=== PATIENT | female | born 1990 | race Caucasian/White ===

== ENCOUNTER 2017-08-22 11:43 | Inpatient (IN) ==
--- NOTE | 2017-08-22 11:01 | Anesthesia Evaluation PreOp ---
Date of Encounter: 08/22/17 Time of Encounter: 10:59 - Past History Planned Operation: csection Cardiac History: Denies any Significant Hx Pulmonary History: Smoker (1/2 pack per day) UPPER LEATHER CUTTER History: Denies Any Significant HX Other Medical History: Other (anxiety, depression) Anesthesia History: No Prior Anesthetic Complications, Past Anesthesia (eyes, ears) : Yes (, 28 weeks, no tracable heart tones) Alcohol Use: none Drug use: none Medications and Allergies Famotidine [Pepcid] 20 mg PO BID #60 tablet 12/22/15 [Rx] Vit/FA 1 each PO DAILY 12/22/15 [History] Methocarbamol [Robaxin] 500 mg PO Q8HR #30 tablet 10/18/16 [Rx] Tramadol HCl [Ultram] 50 mg PO TID PRN #6 tab 10/18/16 [Rx] predniSONE [Prednisone] 40 mg PO DAILY #10 tablet 10/18/16 [Rx] Diclofenac Sodium [Voltaren] 50 mg PO Q8HR #30 tablet. 11/17/16 [Rx] Tramadol HCl [Ultram] 50 mg PO Q6HR PRN #20 tab 11/17/16 [Rx] 3 Allergy/AdvReac Type Severity Reaction Status Date / Time aspirin Allergy Rash Verified 11/17/16 21:15 Penicillins Allergy Rash Verified 11/17/16 21:15 - Meds/Allergy Pre-op Review Medications Reviewed: Yes Allergies Reviewed: Yes Beta Blockers on Current Med List: No Anesthesia Exam Height: 65 Weight: 78 NPO (# of Hours): TEA THIS AM, NO CREAMER - HEENT Pupil (Motor): Pupils equal Mallampati: III Teeth: Normal Oral Opening: Greater than 3 - UPPER LEATHER CUTTER LOC: Oriented UPPER LEATHER CUTTER Motor: Normal RUE, Normal LUE, Normal RLE, Normal LLE, Normal Face UPPER LEATHER CUTTER Sensory: Normal: RUE, LUE, RLE, LLE, Face - Cardiac Rhythm: Regular Murmur: None JVD: No Carotid Bruit: No - Pulmonary Breath Sounds: bilateral Clear Respiratory Effort: Symmetrical Anesthesia Assess/Plan ASA Score: 2 Modified [place] Scale for Level of Consciousness: Cooperative, oriented, and tranquil Anesthetic Plan: General Monitoring Plan: Standard Monitors Recovery Plan: PACU
[2017-08-22 11:18] LABS: Basophils % 0.2 %; Eosinophils % 0.1 %; Monocytes % 5.5 %
[2017-08-22 11:20] LABS: Basophils # 0.1 K/mcL (0.0-0.2); Hematocrit 22.8 % (35.3-44.9); Hemoglobin 6.8 g/dL (11.5-15.4); Immature Granulocytes % 3.1 % (0-4); Immature Platelets 2.5 % (1.1-6.1); Lymphocytes # 1.9 K/mcL (0.6-4.6); Lymphocytes % 5.8 %; Mean Corpuscular HGB Conc 29.8 g/dL (31.6-35.5); Mean Corpuscular Hemoglobin 23.3 pg (28.0-33.3); Mean Corpuscular Volume 78.1 fL (83.0-100.0); Mean Platelet Volume 8.5 fL (9.4-12.4); Monocytes # 1.8 K/mcL (0.0-1.3); Neutrophils # 27.7 K/mcL (1.6-8.9); Nucleated Red Blood Cells 0.8 /100 WBC (0); Platelet Count 140 K/mcL (140-400); Red Blood Count 2.92 M/mcL (3.82-4.97); Red Cell Distribution Width 16.2 % (11.5-14.5); Segmented Neutrophils % 85.3 %
[2017-08-22 11:25] LABS: INR 1.2; Prothrombin Time 12.8 Seconds (9.4-12.1)
[2017-08-22 11:28] LABS: Activated Partial Thrombo Time 28.5 Seconds (26.0-36.0)
[2017-08-22 11:43] LABS: Anisocytosis 1+ (Not Present); Hypochromasia Present (Not Present); Microcytosis Present (Not Present); Polychromasia 1+ (Not Present)
[~2017-08-22 11:43] MED LIST: *HR* Etomidate 40 MG/20 ML VIAL IVP ONE; *HR* Oxytocin 10 UNIT/ML VIAL IM ONE; *HR* Phenylephrine 10 MG/ML VIAL ONE; *HR* Propofol 200 MG/20 ML VIAL IVP ONE; *HR* Succinylcholine 200 MG/10 ML VIAL IVP ONE; CeFAZolin Syr 3,000MG/30 ML 3,000 MG/30 ML SYRINGE IVPB ONE; Famotidine 20 MG/2 ML VIAL IVP PRN; Naloxone 0.4 MG/ML INJ IVP PRN; Ondansetron 4 MG/2 ML VIAL IVP PRN; Ringers Solution, Lactated 1,000 ML IVC SCH; Ringers Solution, Lactated 2,000 ML ONE
[2017-08-22 11:44] LABS: Platelet Estimate Normal (Normal)
[2017-08-22] MEDS ORDERED: Heparin 1,000 UNITS/500 mL 500 ML ONE (11:45)
[2017-08-22] MEDS ORDERED: *HR* FentaNYL (PF) 100 MCG/2 ML VIAL ONE (12:00)
[2017-08-22] MEDS ORDERED: *HR* HYDROmorphone (PF) 1 MG/ML SYRINGE ONE ×2 (12:19→12:36)
[2017-08-22] MEDS ORDERED: Dexamethasone 4 MG/ML VIAL ONE (12:22)
[2017-08-22] MEDS ORDERED: Ondansetron 4 MG/2 ML VIAL ONE (12:22)
[2017-08-22] MEDS ORDERED: *HR* Oxytocin 10 UNIT/ML VIAL IM ONE (12:25)
[2017-08-22] MEDS ORDERED: Ringers Solution, Lactated 1,000 ML ONE (12:25)
--- NOTE | 2017-08-22 12:58 | OB/GYN History & Physical ---
Date of Encounter: 08/22/17 Time of Encounter: 12:55 Assessment and Plan (1) and not yet delivered in third trimester Current visit: Yes Status: Acute (2) 29 weeks gestation of Current visit: Yes Status: Acute (3) Placental abruption in second trimester Current visit: Yes Status: Acute Patient will be prepped for an emergency section (4) demise > 22 weeks, delivered, current hospitalization Current visit: Yes Status: Acute History of Present Illness HPI: Ms. Rodriguez is a 27 year old female Patient is a 27-year-old 5 para 3013 at 29-2/7 weeks. Presented to labor and delivery with complaint of vaginal bleeding and severe abdominal pain. Patient is a care at another facility and approximately 4 AM this point started having severe abdominal pain she then since she started bleeding but did not call anyone. She arrived at our facility with severe pain kristen every 1 minute patient had called characteristics of the abruption with active vaginal bleeding. We did not heart tones immediately place the scanner on the patient and could not document any heart tones. We did have a medical technologist generalist come over from the office to also scan and they could not identify any heart tones either with color flow. Patient did not want to try and deliver vaginally wanted a section and was having such severe pain did not want to go through anything else. While we were getting patient set up for dissection lab work did come back she was noted to have hemoglobin of 6.8 platelets were down to 140,000 and she was getting uncomfortable. An emergency was in called due to potential going into DIC. Past Med Surg Social Fam HX - Past Medical History Source: patient Medical history: no medical history, other Psychiatric history: anxiety, bipolar, depression, other - Past Surgical History Surgical History: other - Social History Smoking Status: Current every day smoker Packs per day: 0.5 Smokeless Tobacco Status: No Alcohol use: none Drug use: none Occupational status: unemployed Current living situation: Home - Independent Activity Level: Independent ambulation Recent Out of Country Travel Within the Last 8 Weeks: No Exposure or Possible Exposure to Illness During Travel: No - Family History Brother Living Status: Still Living Hx Family Neurologic Disorders: Yes Obstetrical History - Pregnancies : 5 Para: 3 Term: 3 : 0 Ab's: 1 Livin Medications and Allergies 3 Allergy/AdvReac Type Severity Reaction Status Date / Time aspirin Allergy Rash Verified 11/17/16 21:15 Penicillins Allergy Rash Verified 11/17/16 21:15 Review of System OB - Menstruation Menstruation: other (Active vaginal bleeding severe cramping every minute) Exam - Constitutional Constitutional: well developed, average body habitus, severe distress - HEENT HEENT: EOMI, PERRL - Neck Neck exam: full ROM - Lungs Respiratory exam: CTAB - Cardiovascular Cardiovascular exam: RRR - Abdomen Abdomen: Present: gravid (Abdomen hard very tender to palpation) - Cervix Dilation: 2 Effacement: 80 Station: -2 - Uterus Uterus exam: Present: tender Results Result Diagrams: 08/22/17 11:00 Abnormal lab results WBC 32.5 K/mcL (4.3-11.1) H* 08/22/17 11:00 RBC 2.92 M/mcL (3.82-4.97) L 08/22/17 11:00 Hgb 6.8 g/dL (11.5-15.4) L 08/22/17 11:00 Hct 22.8 % (35.3-44.9) L 08/22/17 11:00 MCV 78.1 fL (83.0-100.0) L 08/22/17 11:00 MCH 23.3 pg (28.0-33.3) L 08/22/17 11:00 MCHC 29.8 g/dL (31.6-35.5) L 08/22/17 11:00 RDW 16.2 % (11.5-14.5) H 08/22/17 11:00 MPV 8.5 fL (9.4-12.4) L 08/22/17 11:00 Neutrophils # 27.7 K/mcL (1.6-8.9) H 08/22/17 11:00 Monocytes # 1.8 K/mcL (0.0-1.3) H 08/22/17 11:00 Nucleated RBCs/100 WBC 0.8 /100 WBC (0) H 08/22/17 11:00 Polychromasia 1+ (Not Present) A 08/22/17 11:00 Hypochromasia Present (Not Present) A 08/22/17 11:00 Anisocytosis 1+ (Not Present) A 08/22/17 11:00 Microcytosis Present (Not Present) A 08/22/17 11:00 PT 12.8 Seconds (9.4-12.1) H 08/22/17 11:00 Fibrinogen 95 mg/dL (169-393) L* 08/22/17 11:00 All other labs normal. - VTE Reasons for not Prescribing Prophylaxis: Treatment not Indicated - Low risk for VTE
[2017-08-22 13:08] LABS: Amphetamine Screen,Urine Negative ng/mL (Cutoff=1000); Barbiturate Screen,Urine Negative ng/mL (Cutoff=200); Benzodiazepines Screen,Urine Negative ng/mL (Cutoff=200); Cannabinoid Screen,Urine Negative ng/mL (Cutoff = 50); Cocaine Screen,Urine Negative ng/mL (Cutoff= 300); Opiate Screen,Urine Negative ng/mL (Cutoff=300); Phencyclidine Screen,Urine Negative ng/mL (Cutoff=25)
--- NOTE | 2017-08-22 13:11 | OB/GYN Procedure Note ---
Section - Date of procedure: 08/22/17 Preop diagnosis: other (Intrauterine at 29-2/7 weeks, placental abruption, active vaginal bleeding, demise) Post-op diagnosis: same (With complete abruption and DIC) Procedure: primary low transverse Surgeon: John Ohara Estimated blood loss (cc): 2,500 Was there an hearing and speech assistant present: Yes Senior Tech Manufacturing Engineering: La Nena Roger ([email or web address]) Anesthesiologist: Nate Ackerman Platform Inspector: Joseph Moran Anesthesia Type: General section complications: transfusion Disposition: ICU Specimens: Placenta - Infant (s) Infant A Delivery Date: 08/22/17 Delivery Time: 12:07 Presentation: vertex Route of delivery: other (section) Gender: Female Viability: Nonviable at 1 minute: 0 at 5 minutes: 0 Shoulder Dystocia: not encountered Placenta: spontaneous - Narrative Narrative: Patient is a 27-year-old 5 para 3 at 29-2/7 weeks who presented complaining of severe abdominal pain and vaginal bleeding patient was noted to be abrupting when we got heart tones it was noted there was no heart tones both by Doppler and by ultrasound. Patient was not wanted to deliver vaginally. Her blood work bacteria. She was going into the before meals hemoglobin was done 6.8 and platelets with 140,000 she was immediately taken for an emergency section. Procedure: Patient was taken operating room where general anesthesia was found be adequate. She was placed in the dorsal lithotomy position prepped and draped in usual fashion. Timeout was then obtained. A Pfannenstiel incision was then made with a scalpel and carried down through the underlying tissue to the fascia was identified. Fascia was nicked in midline extended laterally with the Watson scissors. The superior and inferior edges of the fascia grasped tented up and dissected off the rectus muscles. Rectus muscles were in midline parietal peritoneum was identified tented up and entered sharply. This was extended superiorly and inferiorly Metzenbaum scissors. Bladder flap was created digitally the lower uterine segment was incised with a scalpel extended laterally with digital manipulation. Bladder blade was inserted the vesicouterine peritoneum was identified tented up and entered sharply. This was extended laterally and bladder flap created digitally. The lower uterine segment incised with a scalpel extended laterally with digital manipulation. Membranes were ruptured and fluid was blood tinged was delivered as no cardiac activity cord is clamped and cut infant was handed off to waiting pediatric team. It was noted immediately that the placenta was not attached back it was removed followed by approximately 500 mL of clot. Uterus is removed from the abdomen and cleaned of all clots and debris. The lower uterine segment was then closed in 0 Vicryl in a running locking stitch by a 2 layer closure. Good hemostasis was noted at this time however she started to have oozing coming from the suture line. Did require couple [id number] get that under control. Uterus was returned back to the abdomen the gutters were cleaned of all clots and debris large clots were then identified at this time and removed. Patient continued to have oozing now around the bladder reflection Liza was then applied to the surface and the vesicouterine peritoneum was closed using a 2-0 Vicryl in a running stitch. No attempt was made to close the parietal peritoneum the fascia was then closed using a #1 stratafix in a running stitch it was noted this time she had moderate amount of bleeding, from the subcutaneous thing is tissue attempts were made to get this under control with monopolar cautery but it was decided this time we just placed the MEME drain in the subcutaneous layer and then closed the skin with verona. The skin was closed verona and a pressure dressing was applied. All needles lap sponge counts were correct 3 she did receive preoperative antibiotics. We will continue antibiotics for the next 24 hours patient did receive first couple units of blood intraoperatively. Patient was transferred to ICU.
[2017-08-22 13:12] LABS: Basophils % 0.2 %; Red Blood Count 2.53 M/mcL (3.82-4.97); Red Cell Distribution Width 17.7 % (11.5-14.5)
[2017-08-22 13:13] LABS: Basophils # 0.1 K/mcL (0.0-0.2); Eosinophils % 0.1 %; Hematocrit 20.7 % (35.3-44.9); Hemoglobin 6.4 g/dL (11.5-15.4); Immature Granulocytes % 3.4 % (0-4); Lymphocytes # 1.4 K/mcL (0.6-4.6); Lymphocytes % 5.3 %; Mean Corpuscular HGB Conc 30.9 g/dL (31.6-35.5); Mean Corpuscular Hemoglobin 25.3 pg (28.0-33.3); Mean Corpuscular Volume 81.8 fL (83.0-100.0); Mean Platelet Volume 9.1 fL (9.4-12.4); Monocytes # 1.6 K/mcL (0.0-1.3); Monocytes % 5.8 %; Neutrophils # 23.1 K/mcL (1.6-8.9); Nucleated Red Blood Cells 0.8 /100 WBC (0); Segmented Neutrophils % 85.2 %
[2017-08-22 13:22] LABS: Alanine Aminotransferase 5 Units/L (7-52); Aspartate Amino Transferase 19 Units/L (13-39); BUN/Creatinine Ratio 17 (6-26); Blood Urea Nitrogen 6 mg/dL (6-20); Lactate Dehydrogenase 321 Units/L (140-271); Uric Acid 3.8 mg/dL (2.3-7.6); eGFR For African Americans > 60 (> 60); eGFR For Non-African Americans > 60 (> 60)
[2017-08-22 13:24] LABS: Platelet Count 59 K/mcL (140-400)
[2017-08-22] MEDS ORDERED: *HR* HYDROmorphone (PF) 1 MG/ML SYRINGE IVP PRN ×2 (13:27→13:40)
[2017-08-22] MEDS ORDERED: Ondansetron 4 MG/2 ML VIAL IVP PRN (13:33)
[2017-08-22] MEDS ORDERED: Oxytocin 20 units/ LR 1000 mL 20 UNIT/1,000 ML BAG IVC SCH (13:33)
[2017-08-22] MEDS ORDERED: Sennosides 8.6 MG TABLET PO PRN (13:33)
[2017-08-22] MEDS ORDERED: Simethicone 80 MG TAB.CHEW PO PRN (13:33)
[2017-08-22] MEDS ORDERED: Metoclopramide 10 MG/2 ML VIAL IVP PRN (13:33)
[2017-08-22] MEDS ORDERED: *HR* HYDROmorphone 20 MG/20 ML PCA IVC PRN (13:33)
[2017-08-22] MEDS ORDERED: Ringers Solution, Lactated 1,000 ML IVC SCH (13:33)
[2017-08-22] MEDS ORDERED: *HR* LORazepam 2 MG/ML VIAL IVP PRN (13:33)
--- NOTE | 2017-08-22 13:44 | Pulmonology Consult Note ---
<Jerry Mello - Last Filed: 08/22/17 14:44> Date of Encounter: 08/22/17 Time of Encounter: 13:41 Assessment and Plan (1) Acute blood loss anemia Current Visit: Yes Status: Acute Patient admitted for severe abdominal pain at 29-2/7 weeks Active vaginal bleeding without heart tones Hgb dropped from 10.8 -> 6.4 S/p emergency today and received 2 units PRBCs intra-operatively Plan: Continue blood transfusions; likely require 4-6 units Iron supplementation Closely monitor vital signs throughout the day Hemodynamically stable at this time There is a concern for possible DIC, though INR stable and Plt 140,000. Will follow. (2) Status post emergency section Current Visit: Yes Status: Acute S/p emergency Cesarian section on 08/22/17 CHANNEL OPENER managing Pain control NC 02 2L Received 2 units PRBCs intra-operatively ABD Binder at all times Vital signs are stable Patient is still high risk and will continue to monitor closely (3) Placental abruption in second trimester Current Visit: Yes Status: Acute Underwent emergency with drop in Hgb to 6.8 and Plt 140,000 along with demise (4) Leukocytosis Current Visit: Yes Status: Acute WBC trending down 32.5 to 27.1 Likely reactive at this time Continue Ancef Will continue to follow Qualifiers: Leukocytosis type: unspecified Qualified Code(s): D72.829 - Elevated white blood cell count, unspecified (5) Abdominal pain Current Visit: Yes Status: Acute Incisional pain from and generalized discomfort as well Dilaudid CUPOLA TENDER HELPER pump ordered Pain is improving Qualifiers: Abdominal location: generalized Qualified Code(s): R10.84 - Generalized abdominal pain (6) demise > 22 weeks, delivered, current hospitalization Current Visit: Yes Status: Acute Underwent emergency . Does want baby brought to bedside at this time (7) Pediculosis capitis Current Visit: Yes Status: Acute Anesthesiology noted to see head lice during the Precautions Ordered Nix treatment x1 (8) DVT prophylaxis Current Visit: Yes Status: Acute EPCDs only at this time with significant blood loss anemia History of Present Illness Consult date: 08/22/17 Chief complaint: abdominal pain, abruption History of present illness: Ms. Rodriguez is a 27 year old female with a past medical history of anxiety and depression who presented to [facility] ED with a chief compalint of severe abdominal pain and vaginal bleeding. She is 5 para 3013 at 29-2/7 weeks. Patient is a care at another facility and approximately 4 AM this point started having severe abdominal pain she then since she started bleeding but did not call anyone. She arrived at our facility with severe pain kristen every 1 minute patient had called characteristics of the abruption with active vaginal bleeding. US did not show heartones. Patient did not want to try and deliver vaginally wanted a section and was having such severe pain did not want to go through anything else. While OB was getting patient set up for Cesarian section, lab work did come back she was noted to have hemoglobin of 6.8 and platelets were down to 140,000. She was notably uncomfortable and an emergency was in called due to potential going into DIC. She underwent a successful emergent without complication. Patient received 2 units of PRBCs intra-operatively. With her need for multiple blood transfusions, possible DIC or hemodynamic instabily, she was transferred to ICU and Pulm/Critcal care was consulted. On evaluation, she is pale and uncomfortable. Patient does not want to see the baby while she is in the ICU. She continues to complain of abdominal pain and denies any CP, SOB, palpitations or lightheadedness. No petechiae are present. Vitals signs are stable. We will continue to monitor her closely throughout the day and provide any further interventions if necessary. Past Med Surg Social Fam HX - Past Medical History Medical history: no medical history, other Psychiatric history: anxiety, bipolar, depression, other - Past Surgical History Surgical History: other - Social History Smoking Status: Current every day smoker Packs per day: 0.5 Smokeless Tobacco Status: No Alcohol use: none Drug use: none - Family History Brother Living Status: Still Living Hx Family Neurologic Disorders: Yes Medications and Allergies 3 Allergy/AdvReac Type Severity Reaction Status Date / Time aspirin Allergy Rash Verified 11/17/16 21:15 Penicillins Allergy Rash Verified 11/17/16 21:15 All Systems: A 10-system review of systems was performed and is negative for pertinent findings except as documented above in the HPI. - Constitutional Constitutional: as per HPI - EENT Nose, mouth and throat: no headache(s) - Cardiovascular Cardiovascular: no chest pain, no palpitations - Respiratory Respiratory: as per HPI - Gastrointestinal Gastrointestinal: abdominal pain - Integumentary Integumentary: no rash - Neurological Neurological: no headache(s), no loss of vision - Endocrine Endocrine: no flushing Physical Examination General appearance: appears uncomfortable (soft spoken, agitated) Eyes: nonicteric ENT: oropharynx dry Neck: supple Effort: normal Auscultation: bilateral: clear Cardiovascular: regular rate and rhythm Gastrointestinal: normoactive bowel sounds, tender (incisional pain and diffuse) , non-distended Integumentary: other (pale) Extremities: no cyanosis, no edema, no clubbing, no ischemia or petechiae Musculoskeletal: no deformities non-focal exam tearful Results - Laboratory Findings CBC and BMP: 08/22/17 12:40 08/22/17 12:40 PT/INR, D-dimer PT 12.8 Seconds (9.4-12.1) H 08/22/17 11:00 Abnormal lab findings: Abnormal lab results WBC 27.1 K/mcL (4.3-11.1) H 08/22/17 12:40 RBC 2.53 M/mcL (3.82-4.97) L 08/22/17 12:40 Hgb 6.4 g/dL (11.5-15.4) L 08/22/17 12:40 Hct 20.7 % (35.3-44.9) L 08/22/17 12:40 MCV 81.8 fL (83.0-100.0) L 08/22/17 12:40 MCH 25.3 pg (28.0-33.3) L 08/22/17 12:40 MCHC 30.9 g/dL (31.6-35.5) L 08/22/17 12:40 RDW 17.7 % (11.5-14.5) H 08/22/17 12:40 Plt Count 59 K/mcL (140-400) L D 08/22/17 12:40 MPV 9.1 fL (9.4-12.4) L 08/22/17 12:40 Neutrophils # 27.7 K/mcL (1.6-8.9) H 08/22/17 11:00 Monocytes # 1.8 K/mcL (0.0-1.3) H 08/22/17 11:00 Nucleated RBCs/100 WBC 0.8 /100 WBC (0) H 08/22/17 12:40 Polychromasia 1+ (Not Present) A 08/22/17 11:00 Hypochromasia Present (Not Present) A 08/22/17 11:00 Anisocytosis 1+ (Not Present) A 08/22/17 11:00 Microcytosis Present (Not Present) A 08/22/17 11:00 PT 12.8 Seconds (9.4-12.1) H 08/22/17 11:00 Fibrinogen 95 mg/dL (169-393) L* 08/22/17 11:00 Creatinine 0.36 mg/dL (0.60-1.20) L 08/22/17 12:40 ALT 5 Units/L (7-52) L 08/22/17 12:40 Lactate Dehydrogenase 321 Units/L (140-271) H 08/22/17 12:40 - Clinical Findings Intake & Output: Intake & Output 08/21/17 08/22/17 08/22/17 23:59 07:59 15:59 Weight 102.3 kg Consult Discharge Plan - Plan Referrals: NONE,PCP [Primary Care Provider] - <Senait Cool - Last Filed: 08/22/17 15:51> Date of Encounter: 08/22/17 All Systems: A 10-system review of systems was performed and is negative for pertinent findings except as documented above in the HPI. Physical Examination Vital Signs: Vital Signs, Last 4 Hours Temp Pulse Pulse Resp BP Pulse Ox 08/22/17 15:30 94 10 152/71 95 08/22/17 15:00 92 12 138/82 98 08/22/17 14:59 92 92 12 08/22/17 14:52 98.9 F 108 10 157/89 96 08/22/17 14:45 102 12 141/77 98 08/22/17 14:37 98.9 F 92 12 162/87 08/22/17 14:30 98.9 F 97 12 131/81 99 08/22/17 14:15 112 12 161/88 98 08/22/17 14:00 94 16 127/80 99 08/22/17 13:45 119 16 169/89 99 Results - Laboratory Findings CBC and BMP: 08/22/17 12:40 08/22/17 12:40 PT/INR, D-dimer PT 12.8 Seconds (9.4-12.1) H 08/22/17 11:00 Abnormal lab findings: Abnormal lab results WBC 27.1 K/mcL (4.3-11.1) H 08/22/17 12:40 RBC 2.53 M/mcL (3.82-4.97) L 08/22/17 12:40 Hgb 6.4 g/dL (11.5-15.4) L 08/22/17 12:40 Hct 20.7 % (35.3-44.9) L 08/22/17 12:40 MCV 81.8 fL (83.0-100.0) L 08/22/17 12:40 MCH 25.3 pg (28.0-33.3) L 08/22/17 12:40 MCHC 30.9 g/dL (31.6-35.5) L 08/22/17 12:40 RDW 17.7 % (11.5-14.5) H 08/22/17 12:40 Plt Count 59 K/mcL (140-400) L D 08/22/17 12:40 MPV 9.1 fL (9.4-12.4) L 08/22/17 12:40 Neutrophils # 23.1 K/mcL (1.6-8.9) H 08/22/17 12:40 Monocytes # 1.6 K/mcL (0.0-1.3) H 08/22/17 12:40 Nucleated RBCs/100 WBC 0.8 /100 WBC (0) H 08/22/17 12:40 Platelet Estimate Decreased (Normal) L 08/22/17 12:40 Polychromasia 1+ (Not Present) A 08/22/17 12:40 Hypochromasia Present (Not Present) A 08/22/17 11:00 Anisocytosis 1+ (Not Present) A 08/22/17 11:00 Microcytosis Present (Not Present) A 08/22/17 11:00 PT 12.8 Seconds (9.4-12.1) H 08/22/17 11:00 Fibrinogen 95 mg/dL (169-393) L* 08/22/17 11:00 Creatinine 0.36 mg/dL (0.60-1.20) L 08/22/17 12:40 ALT 5 Units/L (7-52) L 08/22/17 12:40 Lactate Dehydrogenase 321 Units/L (140-271) H 08/22/17 12:40 - Clinical Findings Intake & Output: Intake & Output 08/21/17 08/22/17 08/22/17 23:59 07:59 15:59 Intake Total 0 / 0 Balance 0 / 0 Weight 102.3 kg - Attending Attestation I examined this patient and my medical decision-making was reviewed with the Resident Physician. I agree with the documented findings, disposition and treatment plan as described except to the extent set forth below. Patient seen and examined. Labs, radiology, chart personally reviewed. Agree with resident's history and physical, assessment, plan with following comments: SECURITY PUBLIC SAFETY OFFICER: Patient follows commands, patient is lethargic after surgery. Pulmonary: Acceptable oxygenation and ventilation Cardiovascular: stable and correction of her anemia even partially would be acceptable as long as hemodynamically stable. GI: Nutrition per dietary and GI prophylaxis per routine Heme: DVT prophylaxis per routine. Patient had blood loss and transfusion packed RBC to correct her acute anemia. Clinically patient does not have any signs or symptoms of DIC. ID: As per protocol of CHANNEL OPENER Renal; urine out put and renal funtion reviewed Endorcine: blood glucose is monitored Lines: all lines checked and no evidence of infections Skin: skin care to prevent pressure ulcers per nursing routine care CHANNEL OPENER: Management of her postsurgical CHANNEL OPENER related will be managed by CHANNEL OPENER specialist.
[2017-08-22] MEDS ORDERED: 0.9 % Sodium Chloride 250 ML ONE (13:54)
[2017-08-22 14:07] LABS: Polychromasia 1+ (Not Present)
[2017-08-22] MEDS: CeFAZolin Premix DUPLEX 2,000 MG/50 ML BAG IVPB SCH ×2 (14:07→20:52)
[2017-08-22 14:08] LABS: Platelet Estimate Decreased (Normal)
[2017-08-22] MEDS ORDERED: Permethrin Cream Rinse 60 ML LIQUID TP ONE (14:22)
[2017-08-22 17:16] LABS: INR 1.3
--- NOTE | 2017-08-22 17:22 | OB/GYN Progress Note ---
Date of Encounter: 08/22/17 Time of Encounter: 17:20 - Assessment and Plan (1) and not yet delivered in third trimester Current Visit: Yes Status: Resolved (2) 29 weeks gestation of Current Visit: Yes Status: Resolved (3) Placental abruption in second trimester Current Visit: Yes Status: Acute Patient will be prepped for an emergency section (4) demise > 22 weeks, delivered, current hospitalization Current Visit: Yes Status: Acute (5) DIC (disseminated intravascular coagulation) Current Visit: Yes Status: Acute We will order repeat coags stat patient is currently on her fourth unit of blood at this time Subjective - Subjective Interval history: Patient's difficult to communicate with is still under the anesthetic. Patient' s not having excessive vaginal bleeding at this time and is approximately 25 mL and a MEME drain. Lab work obtained at 1:00 for some reason was canceled they did just run at and platelets are down to 59,000 and fibrinogen is 78,000. We will order a stat repeat coags now. Objective - Vital Signs Latest vital signs: Vital Signs Temp Pulse Pulse Resp BP Pulse Ox 08/22/17 16:51 99.0 F 103 14 119/73 96 08/22/17 16:36 99.2 F 105 12 120/74 95 08/22/17 16:32 99.2 F 106 12 120/74 95 08/22/17 15:30 94 10 152/71 95 08/22/17 15:00 92 12 138/82 98 08/22/17 14:59 92 92 12 08/22/17 14:52 98.9 F 108 10 157/89 96 08/22/17 14:45 102 12 141/77 98 08/22/17 14:37 98.9 F 92 12 162/87 08/22/17 14:30 98.9 F 97 12 131/81 99 08/22/17 14:15 112 12 161/88 98 08/22/17 14:00 94 16 127/80 99 08/22/17 13:45 119 16 169/89 99 Intake and Output 08/22/17 08/22/17 08/22/17 07:59 15:59 23:59 Intake Total 0 / 0 301 / 301 Balance 0 / 0 301 / 301 Intake: Blood Product 0 / 0 301 / 301 Rbcs Leuko Poor As-1 Unit 0 / 0 301 / 301 [id number] Rbcs Leuko Poor As-3 Ph Unit 0 / 0 [id number] Other: Weight 102.3 kg Patient Weight 08/22/17 23:59 Weight 102.3 kg - Exam Abdomen: Present: soft Incision: Present: normal, dry (The MEME 25 mL), intact Uterus: Present: firm Comments: Fundal height 2 below the umbilicus - Labs Labs: Laboratory Results - last 24 hr 08/22/17 08/22/17 08/22/17 11:00 11:00 11:00 WBC 32.5 H* RBC 2.92 L Hgb 6.8 L Hct 22.8 L MCV 78.1 L MCH 23.3 L MCHC 29.8 L RDW 16.2 H Plt Count 140 MPV 8.5 L Immature Gran % 3.1 Seg Neutrophils % 85.3 Lymphocytes % 5.8 Monocytes % 5.5 Eosinophils % 0.1 Basophils % 0.2 Neutrophils # 27.7 H Lymphocytes # 1.9 Monocytes # 1.8 H Eosinophils # 0.0 Basophils # 0.1 Nucleated RBCs/100 WBC 0.8 H Platelet Estimate Normal Immature Plt Fraction 2.5 Polychromasia 1+ A Hypochromasia Present A Anisocytosis 1+ A Microcytosis Present A PT 12.8 H INR 1.2 APTT 28.5 Fibrinogen 95 L* BUN Creatinine Est GFR ( Amer) Est GFR (Non-Af Amer) BUN/Creatinine Ratio Uric Acid AST ALT Lactate Dehydrogenase Urine Opiates Screen Ur Barbiturates Screen Ur Phencyclidine Scrn Ur Amphetamines Screen U Benzodiazepines Scrn Urine Cocaine Screen U Marijuana (THC) Screen Blood Type Antibody Screen Crossmatch 08/22/17 08/22/17 08/22/17 11:00 12:30 12:40 WBC 27.1 H RBC 2.53 L Hgb 6.4 L Hct 20.7 L MCV 81.8 L MCH 25.3 L MCHC 30.9 L RDW 17.7 H Plt Count 59 L D MPV 9.1 L Immature Gran % 3.4 Seg Neutrophils % 85.2 Lymphocytes % 5.3 Monocytes % 5.8 Eosinophils % 0.1 Basophils % 0.2 Neutrophils # 23.1 H Lymphocytes # 1.4 Monocytes # 1.6 H Eosinophils # 0.0 Basophils # 0.1 Nucleated RBCs/100 WBC 0.8 H Platelet Estimate Decreased L Immature Plt Fraction Polychromasia 1+ A Hypochromasia Anisocytosis Microcytosis PT INR APTT Fibrinogen BUN Creatinine Est GFR ( Amer) Est GFR (Non-Af Amer) BUN/Creatinine Ratio Uric Acid AST ALT Lactate Dehydrogenase Urine Opiates Screen Negative Ur Barbiturates Screen Negative Ur Phencyclidine Scrn Negative Ur Amphetamines Screen Negative U Benzodiazepines Scrn Negative Urine Cocaine Screen Negative U Marijuana (THC) Screen Negative Blood Type O POSITIVE Antibody Screen NEGATIVE Crossmatch See Detail 08/22/17 08/22/17 08/22/17 12:40 12:40 12:40 WBC RBC Hgb Hct MCV MCH MCHC RDW Plt Count MPV Immature Gran % Seg Neutrophils % Lymphocytes % Monocytes % Eosinophils % Basophils % Neutrophils # Lymphocytes # Monocytes # Eosinophils # Basophils # Nucleated RBCs/100 WBC Platelet Estimate Immature Plt Fraction Polychromasia Hypochromasia Anisocytosis Microcytosis PT 14.0 H INR 1.3 APTT Fibrinogen 78 L* BUN 6 Creatinine 0.36 L Est GFR ( Amer) > 60 Est GFR (Non-Af Amer) > 60 BUN/Creatinine Ratio 17 Uric Acid 3.8 AST 19 ALT 5 L Lactate Dehydrogenase 321 H Urine Opiates Screen Ur Barbiturates Screen Ur Phencyclidine Scrn Ur Amphetamines Screen U Benzodiazepines Scrn Urine Cocaine Screen U Marijuana (THC) Screen Blood Type Antibody Screen Crossmatch
[2017-08-22 20:56] LABS: Nucleated Red Blood Cells 0.4 /100 WBC (0)
[2017-08-22 20:57] LABS: Hematocrit 28.1 % (35.3-44.9); Hemoglobin 9.2 g/dL (11.5-15.4); Mean Corpuscular HGB Conc 32.7 g/dL (31.6-35.5); Mean Corpuscular Hemoglobin 26.3 pg (28.0-33.3); Mean Corpuscular Volume 80.3 fL (83.0-100.0); Mean Platelet Volume 10.1 fL (9.4-12.4); Red Cell Distribution Width 16.5 % (11.5-14.5)
[2017-08-22 21:03] LABS: INR 1.1; Prothrombin Time 11.7 Seconds (9.4-12.1)
[2017-08-22 21:17] LABS: Platelet Count 95 K/mcL (140-400)
[2017-08-22 22:39] LABS: Anisocytosis 1+ (Not Present); Band Neutrophils % 6.1 % (0-4); Lymphocytes # 1.9 K/mcL (0.6-4.6); Lymphocytes % 6.1 %; Monocytes # 0.6 K/mcL (0.0-1.3); Neutrophils # 28.8 K/mcL (1.6-8.9); Polychromasia 1+ (Not Present); Segmented Neutrophils % 85.7 %
[2017-08-22 22:40] LABS: Platelet Estimate Decreased (Normal)
[2017-08-23 04:54] LABS: Basophils % 0.2 %; Hematocrit 24.9 % (35.3-44.9); Monocytes % 5.8 %
[2017-08-23 04:56] LABS: Basophils # 0.1 K/mcL (0.0-0.2); Hemoglobin 8.2 g/dL (11.5-15.4); Immature Granulocytes % 1.4 % (0-4); Lymphocytes # 3.2 K/mcL (0.6-4.6); Mean Corpuscular HGB Conc 32.9 g/dL (31.6-35.5); Mean Corpuscular Hemoglobin 26.5 pg (28.0-33.3); Mean Corpuscular Volume 80.6 fL (83.0-100.0); Mean Platelet Volume 9.7 fL (9.4-12.4); Monocytes # 1.5 K/mcL (0.0-1.3); Neutrophils # 21.4 K/mcL (1.6-8.9); Nucleated Red Blood Cells 0.3 /100 WBC (0); Platelet Count 110 K/mcL (140-400); Red Blood Count 3.09 M/mcL (3.82-4.97); Red Cell Distribution Width 16.4 % (11.5-14.5); Segmented Neutrophils % 80.6 %
[2017-08-23 05:16] LABS: Anisocytosis 1+ (Not Present); Hypochromasia Present (Not Present); Microcytosis Present (Not Present); Platelet Estimate Decreased (Normal); Toxic Granulation Present (Not Present); Toxic Vacuolation Present (Not Present)
--- NOTE | 2017-08-23 08:12 | Pulmonology Progress Note ---
<Jerry Mello - Last Filed: 08/23/17 08:22> Date of Encounter: 08/23/17 Time of Encounter: 08:09 Assessment and Plan (1) Acute blood loss anemia Current Visit: Yes Status: Acute Patient admitted for severe abdominal pain at 29-2/7 weeks Complained of active vaginal bleeding without heart tones Hgb improved from 10.8 -> 6.4 -> 9.2 S/p emergency today and received a total of 6 units Plan: Iron supplementation Continue to closely monitor vital signs Hemodynamically stable at this time Very low concern for DIC Stable to transfer back to [facility] today per OB team (2) Status post emergency section Current Visit: Yes Status: Acute S/p emergency Cesarian section on 08/22/17 [facility] managing Pain control On room air now Received total 6 units PRBCs ABD Binder at all times Vital signs are stable (3) Placental abruption in second trimester Current Visit: Yes Status: Acute Underwent emergency with drop in Hgb to 6.8 and Plt 140,000 along with demise See above (4) Leukocytosis Current Visit: Yes Status: Acute WBC trending down 32.5 to 27.1 -> 26.6 Likely reactive at this time Continue Ancef Will continue to follow Qualifiers: Leukocytosis type: unspecified Qualified Code(s): D72.829 - Elevated white blood cell count, unspecified (5) Abdominal pain Current Visit: Yes Status: Acute Incisional pain from Pain management per OB team Has been well controlled on [employer] pump Qualifiers: Abdominal location: generalized Qualified Code(s): R10.84 - Generalized abdominal pain (6) demise > 22 weeks, delivered, current hospitalization Current Visit: Yes Status: Acute Underwent emergency . (7) Pediculosis capitis Current Visit: Yes Status: Acute Anesthesiology noted to see head lice during the Received Nix treatment x1 Can repeat in one week if no resolution (8) DVT prophylaxis Current Visit: Yes Status: Acute EPCDs for now Subjective Principal diagnosis: placental abruption Interval history: Patient is admitted for placental abruption s/p with acute blood loss anemia She is resting comfortably in bed this morning Complaining of abdominal pain about her incision Nursing reports she received a total of 6 units PRBCs Vital signs stable throughout the night Denies any GHOTRA, chest pain, SOB, palpitations. Objective PUL Vital signs: Last Vital Signs Temp 98.7 F 08/23/17 07:25 Pulse 100 08/23/17 06:00 Resp 16 08/23/17 06:00 BP 121/70 08/23/17 06:00 Pulse Ox 96 08/23/17 06:00 General appearance: no acute distress Eyes: nonicteric ENT: oropharynx dry Neck: supple Effort: normal Auscultation: bilateral: clear Cardiovascular: other (tacchycardia) Gastrointestinal: normoactive bowel sounds, non-distended Integumentary: normal Extremities: no cyanosis, no edema, no clubbing Musculoskeletal: no deformities normal mental status, non-focal exam depressed (not speaking very much) Results - Laboratory Findings CBC and BMP: 08/23/17 04:30 08/22/17 12:40 PT/INR, D-dimer PT 11.7 Seconds (9.4-12.1) 08/22/17 20:45 D-Dimer [id number] ng/mLFEU (0-500) H 08/22/17 20:45 Abnormal lab findings: Abnormal lab results WBC 26.6 K/mcL (4.3-11.1) H 08/23/17 04:30 RBC 3.09 M/mcL (3.82-4.97) L 08/23/17 04:30 Hgb 8.2 g/dL (11.5-15.4) L 08/23/17 04:30 Hct 24.9 % (35.3-44.9) L 08/23/17 04:30 MCV 80.6 fL (83.0-100.0) L 08/23/17 04:30 MCH 26.5 pg (28.0-33.3) L 08/23/17 04:30 RDW 16.4 % (11.5-14.5) H 08/23/17 04:30 Plt Count 110 K/mcL (140-400) L 08/23/17 04:30 Band Neutrophils % 6.1 % (0-4) H 08/22/17 20:45 Neutrophils # 21.4 K/mcL (1.6-8.9) H 08/23/17 04:30 Monocytes # 1.5 K/mcL (0.0-1.3) H 08/23/17 04:30 Nucleated RBCs/100 WBC 0.3 /100 WBC (0) H 08/23/17 04:30 Toxic Granulation Present (Not Present) A 08/23/17 04:30 Toxic Vacuolation Present (Not Present) A 08/23/17 04:30 Platelet Estimate Decreased (Normal) L 08/23/17 04:30 Polychromasia 1+ (Not Present) A 08/22/17 20:45 Hypochromasia Present (Not Present) A 08/23/17 04:30 Anisocytosis 1+ (Not Present) A 08/23/17 04:30 Microcytosis Present (Not Present) A 08/23/17 04:30 APTT 25.7 Seconds (26.0-36.0) L 08/22/17 20:45 D-Dimer [id number] ng/mLFEU (0-500) H 08/22/17 20:45 Creatinine 0.36 mg/dL (0.60-1.20) L 08/22/17 12:40 POC Glucose 122 (58-89) H 08/22/17 13:19 ALT 5 Units/L (7-52) L 08/22/17 12:40 Lactate Dehydrogenase 321 Units/L (140-271) H 08/22/17 12:40 - Clinical Findings Intake & Output: Intake & Output 08/22/17 08/23/17 08/23/17 23:59 07:59 15:59 Intake Total 601 / 601 Output Total 700 / 700 1845 / 1845 Balance -99 / -99 -1845 / -1845 Weight 102 kg - VTE Reasons for not Prescribing Prophylaxis: Treatment not Indicated - Low risk for VTE Documentation of Mechanical Device: Intermittent pneumatic compression device Consult Discharge Plan - Plan Referrals: NONE,PCP [Primary Care Provider] - <Senait Cool - Last Filed: 08/23/17 13:10> Date of Encounter: 08/23/17 Objective PUL Vital signs: Last Vital Signs Temp 98.7 F 08/23/17 07:25 Pulse 112 08/23/17 09:00 Resp 18 08/23/17 09:00 BP 109/68 08/23/17 09:00 Pulse Ox 94 08/23/17 09:00 Results - Laboratory Findings CBC and BMP: 08/23/17 04:30 08/22/17 12:40 PT/INR, D-dimer PT 11.7 Seconds (9.4-12.1) 08/22/17 20:45 D-Dimer [id number] ng/mLFEU (0-500) H 08/22/17 20:45 Abnormal lab findings: Abnormal lab results WBC 26.6 K/mcL (4.3-11.1) H 08/23/17 04:30 RBC 3.09 M/mcL (3.82-4.97) L 08/23/17 04:30 Hgb 8.2 g/dL (11.5-15.4) L 08/23/17 04:30 Hct 24.9 % (35.3-44.9) L 08/23/17 04:30 MCV 80.6 fL (83.0-100.0) L 08/23/17 04:30 MCH 26.5 pg (28.0-33.3) L 08/23/17 04:30 RDW 16.4 % (11.5-14.5) H 08/23/17 04:30 Plt Count 110 K/mcL (140-400) L 08/23/17 04:30 Band Neutrophils % 6.1 % (0-4) H 08/22/17 20:45 Neutrophils # 21.4 K/mcL (1.6-8.9) H 08/23/17 04:30 Monocytes # 1.5 K/mcL (0.0-1.3) H 08/23/17 04:30 Nucleated RBCs/100 WBC 0.3 /100 WBC (0) H 08/23/17 04:30 Toxic Granulation Present (Not Present) A 08/23/17 04:30 Toxic Vacuolation Present (Not Present) A 08/23/17 04:30 Platelet Estimate Decreased (Normal) L 08/23/17 04:30 Polychromasia 1+ (Not Present) A 08/22/17 20:45 Hypochromasia Present (Not Present) A 08/23/17 04:30 Anisocytosis 1+ (Not Present) A 08/23/17 04:30 Microcytosis Present (Not Present) A 08/23/17 04:30 APTT 25.7 Seconds (26.0-36.0) L 08/22/17 20:45 D-Dimer [id number] ng/mLFEU (0-500) H 08/22/17 20:45 Creatinine 0.36 mg/dL (0.60-1.20) L 08/22/17 12:40 POC Glucose 122 (58-89) H 08/22/17 13:19 ALT 5 Units/L (7-52) L 08/22/17 12:40 Lactate Dehydrogenase 321 Units/L (140-271) H 08/22/17 12:40 - Clinical Findings Intake & Output: Intake & Output 08/22/17 08/23/17 08/23/17 23:59 07:59 15:59 Intake Total 651 / 651 50 / 50 Output Total 700 / 700 1845 / 1845 480 / 480 Balance -49 / -49 -1845 / -1845 -430 / -430 Weight 102 kg - Attending Attestation I examined this patient and my medical decision-making was reviewed with the Resident Physician. I agree with the documented findings, disposition and treatment plan as described except to the extent set forth below. Patient seen and examined. Labs, radiology, chart personally reviewed. Agree with resident's history and physical, assessment, plan with following comments: CHECK GRADER: Patient follows commands, Pulmonary: Acceptable oxygenation and ventilation Cardiovascular: stable GI: Nutrition per dietary and GI prophylaxis per routine Heme: DVT prophylaxis per routine. Anemia stable Discussed with [facility] and patient is stable from medical standpoint. Patient was transferred to [facility]. Thank you for the consultation and please call for any questions.
[2017-08-23] MEDS ORDERED: Prenatal Vit/FA 1 EACH TABLET PO SCH (09:00)
[2017-08-23] MEDS: CeFAZolin Premix DUPLEX 2,000 MG/50 ML BAG IVPB SCH ×3 (09:25→22:08)
[2017-08-23] MEDS ORDERED: *HR* OxyCODONE/APAP 5/325 TABLET PO PRN (12:39)
[2017-08-23 13:08] LABS: Hematocrit 25.7 % (35.3-44.9); Hemoglobin 8.5 g/dL (11.5-15.4); Mean Corpuscular HGB Conc 33.1 g/dL (31.6-35.5); Mean Corpuscular Hemoglobin 26.6 pg (28.0-33.3); Mean Corpuscular Volume 80.3 fL (83.0-100.0); Mean Platelet Volume 9.7 fL (9.4-12.4); Platelet Count 133 K/mcL (140-400); Red Cell Distribution Width 16.8 % (11.5-14.5)
[2017-08-23] MEDS ORDERED: *HR* HYDROmorphone (PF) 1 MG/ML SYRINGE IVP PRN (13:40)
--- NOTE | 2017-08-23 13:44 | OB/GYN Progress Note ---
Date of Encounter: 08/23/17 Time of Encounter: 13:41 - Assessment and Plan (1) Acute blood loss anemia Current Visit: Yes Status: Acute Hgb 8.2 this am and now 8.5, stable. Pt on iron. (2) DVT prophylaxis Current Visit: Yes Status: Acute SCD's ordered. No medication given for DVT prophylaxis due to blood loss prior to delivery. Will have pt begin ambulation today. (3) demise > 22 weeks, delivered, current hospitalization Current Visit: Yes Status: Acute (4) Status post emergency section Current Visit: Yes Status: Acute delivery due to maternal blood loss from abruption. Pt meeting POD#1 milestones. Await spontaneous void and flatus. Pt is appropriately grieving at this time. Subjective - Subjective Interval history: Pt recently moved from ICU to . She reports feeling ok at this time. She recently had her arredondo removed and was able to ambulate to the restroom for pericare. She denies nausea but did have emesis x1 after moving to . She reports pain 6/10 at incision site. No flatus since surgery. Lochia has been light. Chaplin: (IUFD upon arrival) Objective - Vital Signs Latest vital signs: Vital Signs Temp Pulse Pulse Resp BP Pulse Ox 08/23/17 12:30 98.2 F 86 14 136/81 97 08/23/17 09:00 112 18 109/68 94 08/23/17 08:00 101 16 121/64 95 08/23/17 07:25 98.7 F 08/23/17 06:00 100 16 121/70 96 08/23/17 05:16 98.6 F 08/23/17 05:00 103 12 118/67 91 08/23/17 04:00 109 100 10 110/63 91 08/23/17 03:00 110 16 122/68 94 08/23/17 02:00 110 16 155/82 94 08/23/17 01:00 94 12 134/76 94 08/23/17 00:51 98.6 F 08/23/17 00:00 108 14 144/87 93 08/22/17 23:00 93 86 14 122/74 94 08/22/17 22:00 87 16 129/83 95 08/22/17 21:00 93 15 133/82 94 08/22/17 20:24 99.4 F 08/22/17 20:00 121 14 147/89 95 08/22/17 19:45 97 97 14 08/22/17 19:00 96 14 138/81 93 08/22/17 18:55 98.8 F 85 10 162/87 94 08/22/17 18:38 81 10 143/77 94 08/22/17 17:00 99.0 F 79 10 110/72 94 08/22/17 16:51 99.0 F 103 14 119/73 96 08/22/17 16:36 99.2 F 105 12 120/74 95 08/22/17 16:32 99.2 F 106 12 120/74 95 08/22/17 16:00 90 12 120/74 94 08/22/17 15:30 94 10 152/71 95 08/22/17 15:00 97 10 123/72 97 08/22/17 14:59 92 92 12 08/22/17 14:52 98.9 F 108 10 157/89 96 08/22/17 14:45 102 12 141/77 98 08/22/17 14:37 98.9 F 92 12 162/87 08/22/17 14:30 98.9 F 97 12 131/81 99 08/22/17 14:15 112 12 161/88 98 08/22/17 14:00 94 12 132/81 94 08/22/17 13:45 119 16 169/89 99 Intake and Output 08/22/17 08/23/17 08/23/17 23:59 07:59 15:59 Intake Total 651 / 651 50 / 50 Output Total 700 / 700 1845 / 1845 530 / 530 Balance -49 / -49 -1845 / -1845 -480 / -480 Intake: IV Fluids 50 / 50 50 / 50 Ancef Premix DUPLEX 2,000 mg In 50 / 50 50 / 50 50 ml @ 100 mls/hr IVPB Q8H [facility] Rx#:[id number] Blood Product 601 / 601 Rbcs Leuko Poor As-1 Unit 301 / 301 [id number] Rbcs Leuko Poor As-3 Ph Unit 300 / 300 [id number] Output: Urine 50 / 50 Catheter 700 / 700 1800 / 1800 480 / 480 Wound Drainage 45 / 45 Right Lower Abdomen 45 / 45 Other: Meal Lunch Percent of Meal Consumed 40% Weight 102 kg Patient Weight 08/23/17 23:59 Weight 102 kg - Exam Lungs: bilateral: normal Chest: Normal S1, Normal S2 Extremities: Present: normal Abdomen: Present: soft, distention (mildly distended and tympanic, hypoactive bowel sounds), tenderness (appropriately tender) Incision: Present: dressed (dressing dry and intact) Uterus: Present: firm Fundal Height: 1 (U/1) - Labs Labs: Laboratory Results - last 24 hr 08/22/17 08/22/17 08/22/17 11:00 12:40 12:40 WBC RBC Hgb Hct MCV MCH MCHC RDW Plt Count MPV Immature Gran % 3.4 Seg Neutrophils % 85.2 Band Neutrophils % Lymphocytes % 5.3 Monocytes % 5.8 Eosinophils % 0.1 Basophils % 0.2 Neutrophils # 23.1 H Lymphocytes # 1.4 Monocytes # 1.6 H Eosinophils # 0.0 Basophils # 0.1 Nucleated RBCs/100 WBC Toxic Granulation Toxic Vacuolation Platelet Estimate Decreased L Polychromasia 1+ A Hypochromasia Anisocytosis Microcytosis PT INR APTT Fibrinogen 78 L* D-Dimer POC Glucose Blood Type O POSITIVE Antibody Screen NEGATIVE Crossmatch See Detail 08/22/17 08/22/17 08/22/17 12:40 13:19 20:45 WBC 31.4 H* RBC 3.50 L Hgb 9.2 L D Hct 28.1 L MCV 80.3 L MCH 26.3 L MCHC 32.7 RDW 16.5 H Plt Count 95 L D MPV 10.1 Immature Gran % Seg Neutrophils % 85.7 Band Neutrophils % 6.1 H Lymphocytes % 6.1 Monocytes % 2.0 Eosinophils % Basophils % Neutrophils # 28.8 H Lymphocytes # 1.9 Monocytes # 0.6 Eosinophils # Basophils # Nucleated RBCs/100 WBC 0.4 H Toxic Granulation Toxic Vacuolation Platelet Estimate Decreased L Polychromasia 1+ A Hypochromasia Anisocytosis 1+ A Microcytosis PT 14.0 H INR 1.3 APTT Fibrinogen D-Dimer POC Glucose 122 H Blood Type Antibody Screen Crossmatch 08/22/17 08/22/17 08/23/17 20:45 20:45 04:30 WBC 26.6 H RBC 3.09 L Hgb 8.2 L Hct 24.9 L MCV 80.6 L MCH 26.5 L MCHC 32.9 RDW 16.4 H Plt Count 110 L MPV 9.7 Immature Gran % 1.4 Seg Neutrophils % 80.6 Band Neutrophils % Lymphocytes % 12.0 Monocytes % 5.8 Eosinophils % 0.0 Basophils % 0.2 Neutrophils # 21.4 H Lymphocytes # 3.2 Monocytes # 1.5 H Eosinophils # 0.0 Basophils # 0.1 Nucleated RBCs/100 WBC 0.3 H Toxic Granulation Present A Toxic Vacuolation Present A Platelet Estimate Decreased L Polychromasia Hypochromasia Present A Anisocytosis 1+ A Microcytosis Present A PT 11.7 INR 1.1 APTT 25.7 L Fibrinogen 180 D D-Dimer [id number] H POC Glucose Blood Type Antibody Screen Crossmatch 08/23/17 08/23/17 04:30 12:52 WBC 23.0 H RBC 3.20 L Hgb 8.5 L Hct 25.7 L MCV 80.3 L MCH 26.6 L MCHC 33.1 RDW 16.8 H Plt Count 133 L MPV 9.7 Immature Gran % Seg Neutrophils % Band Neutrophils % Lymphocytes % Monocytes % Eosinophils % Basophils % Neutrophils # Lymphocytes # Monocytes # Eosinophils # Basophils # Nucleated RBCs/100 WBC Toxic Granulation Toxic Vacuolation Platelet Estimate Polychromasia Hypochromasia Anisocytosis Microcytosis PT INR APTT Fibrinogen 226 D-Dimer POC Glucose Blood Type Antibody Screen Crossmatch
[2017-08-23] MEDS: Ketorolac 30 MG/ML VIAL IM SCH ×2 (17:24→23:59)
[2017-08-23 23:21] VITALS: BP 127/77
[2017-08-24 06:10] LABS: Basophils # 0.1 K/mcL (0.0-0.2); Basophils % 0.3 %; Eosinophils # 0.1 K/mcL (0.0-0.6); Eosinophils % 0.7 %; Hematocrit 24.9 % (35.3-44.9); Immature Granulocytes % 1.3 % (0-4); Lymphocytes # 3.1 K/mcL (0.6-4.6); Lymphocytes % 18.7 %; Mean Corpuscular HGB Conc 32.1 g/dL (31.6-35.5); Mean Corpuscular Hemoglobin 26.3 pg (28.0-33.3); Mean Corpuscular Volume 81.9 fL (83.0-100.0); Mean Platelet Volume 9.5 fL (9.4-12.4); Monocytes % 5.8 %; Neutrophils # 12.1 K/mcL (1.6-8.9); Nucleated Red Blood Cells 0.5 /100 WBC (0); Platelet Count 154 K/mcL (140-400); Red Blood Count 3.04 M/mcL (3.82-4.97); Red Cell Distribution Width 17.2 % (11.5-14.5); Segmented Neutrophils % 73.2 %
[2017-08-24] MEDS: Ketorolac 30 MG/ML VIAL IM SCH (07:03)
--- NOTE | 2017-08-24 09:45 | Discharge Summary ---
Date of Encounter: 08/24/17 Time of Encounter: 09:41 - Discharge Diagnosis (1) demise > 22 weeks, delivered, current hospitalization Priority: Secondary Status: Acute (2) Status post emergency section Priority: Primary Status: Acute Comments: Pt meets all discharge guidelines. VSS Voiding independently without difficulty. Lochia light Ambulating independently without difficulty MEME drain removed Pt to follow up with [facility] for management of bipolar disorder Pt declines rx for zoloft - states she gets migraines when she takes it Discharge home today with follow up in 5 days for staple removal - Discharge Medications Prescriptions: OxyCODONE/APAP 5/325 [Percocet 5/325 MG] 1 each PO Q6HR PRN #28 tablet PRN Reason: Pain Docusate [Colace] 100 mg PO PRN PRN #30 capsule PRN Reason: Constipation Ferrous Sulfate 325 mg PO BID #60 tablet Home Medications: Docusate [Colace] 100 mg PO PRN PRN #30 capsule 08/24/17 [Rx] Ferrous Sulfate 325 mg PO BID #60 tablet 08/24/17 [Rx] OxyCODONE/APAP 5/325 [Percocet 5/325 MG] 1 each PO Q6HR PRN #28 tablet 08/24/17 [Rx] Allergies/Adverse Reactions: 3 Allergy/AdvReac Type Severity Reaction Status Date / Time aspirin Allergy Rash Verified 11/17/16 21:15 Penicillins Allergy Rash Verified 11/17/16 21:15 Data Procedures and tests throughout hospitalization: Laboratory Tests 08/22/17 08/22/17 08/22/17 11:00 11:00 11:00 WBC 32.5 H* RBC 2.92 L Hgb 6.8 L Hct 22.8 L MCV 78.1 L MCH 23.3 L MCHC 29.8 L RDW 16.2 H Plt Count 140 MPV 8.5 L Immature Gran % 3.1 Seg Neutrophils % 85.3 Band Neutrophils % Lymphocytes % 5.8 Monocytes % 5.5 Eosinophils % 0.1 Basophils % 0.2 Neutrophils # 27.7 H Lymphocytes # 1.9 Monocytes # 1.8 H Eosinophils # 0.0 Basophils # 0.1 Nucleated RBCs/100 WBC 0.8 H Toxic Granulation Toxic Vacuolation Platelet Estimate Normal Immature Plt Fraction 2.5 Polychromasia 1+ A Hypochromasia Present A Anisocytosis 1+ A Microcytosis Present A PT 12.8 H INR 1.2 APTT 28.5 Fibrinogen 95 L* D-Dimer BUN Creatinine Est GFR ( Amer) Est GFR (Non-Af Amer) BUN/Creatinine Ratio POC Glucose Uric Acid AST ALT Lactate Dehydrogenase Urine Opiates Screen Ur Barbiturates Screen Ur Phencyclidine Scrn Ur Amphetamines Screen U Benzodiazepines Scrn Urine Cocaine Screen U Marijuana (THC) Screen Blood Type Antibody Screen Crossmatch 08/22/17 08/22/17 08/22/17 11:00 12:30 12:40 WBC 27.1 H RBC 2.53 L Hgb 6.4 L Hct 20.7 L MCV 81.8 L MCH 25.3 L MCHC 30.9 L RDW 17.7 H Plt Count 59 L D MPV 9.1 L Immature Gran % 3.4 Seg Neutrophils % 85.2 Band Neutrophils % Lymphocytes % 5.3 Monocytes % 5.8 Eosinophils % 0.1 Basophils % 0.2 Neutrophils # 23.1 H Lymphocytes # 1.4 Monocytes # 1.6 H Eosinophils # 0.0 Basophils # 0.1 Nucleated RBCs/100 WBC 0.8 H Toxic Granulation Toxic Vacuolation Platelet Estimate Decreased L Immature Plt Fraction Polychromasia 1+ A Hypochromasia Anisocytosis Microcytosis PT INR APTT Fibrinogen D-Dimer BUN Creatinine Est GFR ( Amer) Est GFR (Non-Af Amer) BUN/Creatinine Ratio POC Glucose Uric Acid AST ALT Lactate Dehydrogenase Urine Opiates Screen Negative Ur Barbiturates Screen Negative Ur Phencyclidine Scrn Negative Ur Amphetamines Screen Negative U Benzodiazepines Scrn Negative Urine Cocaine Screen Negative U Marijuana (THC) Screen Negative Blood Type O POSITIVE Antibody Screen NEGATIVE Crossmatch See Detail 08/22/17 08/22/17 08/22/17 12:40 12:40 12:40 WBC RBC Hgb Hct MCV MCH MCHC RDW Plt Count MPV Immature Gran % Seg Neutrophils % Band Neutrophils % Lymphocytes % Monocytes % Eosinophils % Basophils % Neutrophils # Lymphocytes # Monocytes # Eosinophils # Basophils # Nucleated RBCs/100 WBC Toxic Granulation Toxic Vacuolation Platelet Estimate Immature Plt Fraction Polychromasia Hypochromasia Anisocytosis Microcytosis PT 14.0 H INR 1.3 APTT Fibrinogen 78 L* D-Dimer BUN 6 Creatinine 0.36 L Est GFR ( Amer) > 60 Est GFR (Non-Af Amer) > 60 BUN/Creatinine Ratio 17 POC Glucose Uric Acid 3.8 AST 19 ALT 5 L Lactate Dehydrogenase 321 H Urine Opiates Screen Ur Barbiturates Screen Ur Phencyclidine Scrn Ur Amphetamines Screen U Benzodiazepines Scrn Urine Cocaine Screen U Marijuana (THC) Screen Blood Type Antibody Screen Crossmatch 08/22/17 08/22/17 08/22/17 13:19 20:45 20:45 WBC 31.4 H* RBC 3.50 L Hgb 9.2 L D Hct 28.1 L MCV 80.3 L MCH 26.3 L MCHC 32.7 RDW 16.5 H Plt Count 95 L D MPV 10.1 Immature Gran % Seg Neutrophils % 85.7 Band Neutrophils % 6.1 H Lymphocytes % 6.1 Monocytes % 2.0 Eosinophils % Basophils % Neutrophils # 28.8 H Lymphocytes # 1.9 Monocytes # 0.6 Eosinophils # Basophils # Nucleated RBCs/100 WBC 0.4 H Toxic Granulation Toxic Vacuolation Platelet Estimate Decreased L Immature Plt Fraction Polychromasia 1+ A Hypochromasia Anisocytosis 1+ A Microcytosis PT 11.7 INR 1.1 APTT Fibrinogen 180 D D-Dimer 92536 H BUN Creatinine Est GFR ( Amer) Est GFR (Non-Af Amer) BUN/Creatinine Ratio POC Glucose 122 H Uric Acid AST ALT Lactate Dehydrogenase Urine Opiates Screen Ur Barbiturates Screen Ur Phencyclidine Scrn Ur Amphetamines Screen U Benzodiazepines Scrn Urine Cocaine Screen U Marijuana (THC) Screen Blood Type Antibody Screen Crossmatch 08/22/17 08/23/17 08/23/17 20:45 04:30 04:30 WBC 26.6 H RBC 3.09 L Hgb 8.2 L Hct 24.9 L MCV 80.6 L MCH 26.5 L MCHC 32.9 RDW 16.4 H Plt Count 110 L MPV 9.7 Immature Gran % 1.4 Seg Neutrophils % 80.6 Band Neutrophils % Lymphocytes % 12.0 Monocytes % 5.8 Eosinophils % 0.0 Basophils % 0.2 Neutrophils # 21.4 H Lymphocytes # 3.2 Monocytes # 1.5 H Eosinophils # 0.0 Basophils # 0.1 Nucleated RBCs/100 WBC 0.3 H Toxic Granulation Present A Toxic Vacuolation Present A Platelet Estimate Decreased L Immature Plt Fraction Polychromasia Hypochromasia Present A Anisocytosis 1+ A Microcytosis Present A PT INR APTT 25.7 L Fibrinogen 226 D-Dimer BUN Creatinine Est GFR ( Amer) Est GFR (Non-Af Amer) BUN/Creatinine Ratio POC Glucose Uric Acid AST ALT Lactate Dehydrogenase Urine Opiates Screen Ur Barbiturates Screen Ur Phencyclidine Scrn Ur Amphetamines Screen U Benzodiazepines Scrn Urine Cocaine Screen U Marijuana (THC) Screen Blood Type Antibody Screen Crossmatch 08/23/17 08/24/17 12:52 05:58 WBC 23.0 H 16.5 H RBC 3.20 L 3.04 L Hgb 8.5 L 8.0 L Hct 25.7 L 24.9 L MCV 80.3 L 81.9 L MCH 26.6 L 26.3 L MCHC 33.1 32.1 RDW 16.8 H 17.2 H Plt Count 133 L 154 MPV 9.7 9.5 Immature Gran % 1.3 Seg Neutrophils % 73.2 Band Neutrophils % Lymphocytes % 18.7 Monocytes % 5.8 Eosinophils % 0.7 Basophils % 0.3 Neutrophils # 12.1 H Lymphocytes # 3.1 Monocytes # 1.0 Eosinophils # 0.1 Basophils # 0.1 Nucleated RBCs/100 WBC 0.5 H Toxic Granulation Toxic Vacuolation Platelet Estimate Immature Plt Fraction Polychromasia Hypochromasia Anisocytosis Microcytosis PT INR APTT Fibrinogen D-Dimer BUN Creatinine Est GFR ( Amer) Est GFR (Non-Af Amer) BUN/Creatinine Ratio POC Glucose Uric Acid AST ALT Lactate Dehydrogenase Urine Opiates Screen Ur Barbiturates Screen Ur Phencyclidine Scrn Ur Amphetamines Screen U Benzodiazepines Scrn Urine Cocaine Screen U Marijuana (THC) Screen Blood Type Antibody Screen Crossmatch Labs on day of discharge: Labs from last 24 hours 08/24/17 08/23/17 05:58 12:52 WBC 16.5 H 23.0 H RBC 3.04 L 3.20 L Hgb 8.0 L 8.5 L Hct 24.9 L 25.7 L MCV 81.9 L 80.3 L MCH 26.3 L 26.6 L MCHC 32.1 33.1 RDW 17.2 H 16.8 H Plt Count 154 133 L MPV 9.5 9.7 Immature Gran % 1.3 Seg Neutrophils % 73.2 Lymphocytes % 18.7 Monocytes % 5.8 Eosinophils % 0.7 Basophils % 0.3 Neutrophils # 12.1 H Lymphocytes # 3.1 Monocytes # 1.0 Eosinophils # 0.1 Basophils # 0.1 Nucleated RBCs/100 WBC 0.5 H Date of admission: 08/22/17 11:43 Primary care physician: PCP NONE Consults: 08/22/17 13:41 Consult to Pulmonology [CONS] Routine Consulting Provider: [facility] Reason for Consult: placental abruption Call Completed: Yes Discharging clinician: Karina García Anticipated date of discharge: 08/24/17 - Patient Status Disposition: Home, Self-Care Condition: Good Functional capacity at discharge: independent ambulation Overall status at discharge: patient is progressing back to baseline - Discharge Instructions Follow Up With: NONE,PCP [Primary Care Provider] - John Ohara DO [Partnered Physician] - - Diet and Activity Activity: increase activity as tolerated Diet: regular diet Hospital Course Reason for admission: section, labor, IUFD Delivery: section Episiotomy: none Laceration: none Other procedures: none complications: none Discharge diagnosis: intrapartum demise baby: female Time spent discussing smoking cessation with patient: 3 to 10 minutes Time Attestation: Total time spent providing and/or coordinating discharge services: Time Spent: Less than 30 minutes - VTE Reasons for not Prescribing Prophylaxis: Treatment not Indicated - Low risk for VTE Documentation of Mechanical Device: Intermittent pneumatic compression device Exam - Constitutional Vitals: Temp Pulse Resp BP Pulse Ox 98.1 F 97 16 127/77 97 08/23/17 20:45 08/23/17 20:45 08/23/17 20:45 08/23/17 20:45 08/23/17 20:45 General appearance IM: cooperative, A&O X 3, pleasant, no acute distress - Respiratory Respiratory exam: Present: CTAB - Cardiovascular Cardiovascular exam IM: Present: RRR, +S1, +S2 - GI/Abdominal GI/Abdominal exam IM: normal bowel sounds - Rectal Rectal exam: deferred - Uterine Tone: Firm Uterus Position: 3 Fingers Below Umbilicus, Midline - Extremities Exam Extremities exam IM: Present: full ROM - Neurological Exam Neurological exam: alert, CN II-XII intact, oriented X3, strengths equal and symetr throughout
== END 2017-08-24 10:30 | disposition home or self-care (01) | DRG 540 ==
LOC: 1NENULAB → ICNU 13:14 → 1NENUPED 08-23 12:00
PROVIDERS: ADMIT Obstetrics & Gynecology; ATTEND Student in an Organized Health Care Education/Training Program